=== PATIENT | female | born 1990 | race African-American/Black ===

== ENCOUNTER 2016-07-25 15:13 | Emergency (ER) | payer OTHER ==
[~2016-07-25] VITALS: Ht 170.2 cm; Wt 109.1 kg
[2016-07-25] MEDS ORDERED: DEXAMETHASONE SOD PHOS 4 MG/ML 5 ML VIAL IM ONE (19:00)
[2016-07-25] MEDS ORDERED: CefTRIAXone 1 GM/DEXTROSE 50 ML IV ONE (19:00)
[2016-07-25 19:19] VITALS: BP 126/71
== END 2016-07-25 19:39 | disposition home or self-care (01) ==
LOC: EMS 15:16
DX: O99.512 Diseases of the respiratory system complicating pregnancy, second trimester (principal); J18.9 Pneumonia, unspecified organism; Z3A.14 14 weeks gestation of pregnancy; Z91.018 Allergy to other foods
CPT/HCPCS: 71020; 96365; 96372; 99284; J0696; J1100